=== PATIENT | female | born 1935 | race Two or more races ===

== ENCOUNTER 2022-07-25 15:55 | Emergency (ER) | payer OTHER, MEDICAID ==
[2022-07-25 16:55] VITALS: BP 155/68
[2022-07-25] MEDS ORDERED: LIDOCAINE 1% HCL (LOCAL ANESTH.) INJ 20ML MDV IJ ONE (17:15)
[2022-07-25] MEDS ORDERED: CEPH-510 PO (17:42)
== END 2022-07-25 17:52 | disposition home or self-care (01) ==
LOC: ER 15:55
DX: S61.011A Laceration without foreign body of right thumb without damage to nail, initial encounter (principal); I10 Essential (primary) hypertension; Z88.6 Allergy status to analgesic agent; Z88.8 Allergy status to other drugs, medicaments and biological substances; W18.09XA Striking against other object with subsequent fall, initial encounter; Y93.89 Activity, other specified; Y92.89 Other specified places as the place of occurrence of the external cause; Y99.8 Other external cause status
CPT/HCPCS: 12002